=== PATIENT | male | born 1945 | race Caucasian/White ===

== ENCOUNTER → 2019-09-22 | Outpatient (CLI) | payer MEDICARE, OTHER ==
[~2019-09-22] MED LIST: Bactrim Ds Tab1 EACH PO; CEFD300 PO; Clonazepam0.5 MG PO; Lovastatin20 MG PO; METO25 PO; Naprosyn500 MG PO; Naproxen500 MG PO; Norco 5-325 Ta1 EACH PO; OMEP40CA12 PO
== END | disposition home or self-care (01) ==
LOC: LAB SHORT 12:43 → LAB 12:43
DX: L82.1 Other seborrheic keratosis (principal)
CPT/HCPCS: 88305

== ENCOUNTER → 2020-12-13 | Outpatient (CLI) | payer MEDICARE, OTHER | END | disposition home or self-care (01) | LOC: LAB SHORT 18:41 → PLD 18:41 | DX: J02.9 Acute pharyngitis, unspecified (principal) | CPT/HCPCS: 87081 ==

== ENCOUNTER → 2021-06-15 | Outpatient (CLI) | payer MEDICARE, OTHER | LOC: LAB 14:58 → LAB SHORT 14:58 | DX: D48.5 Neoplasm of uncertain behavior of skin (principal); L57.0 Actinic keratosis; D04.39 Carcinoma in situ of skin of other parts of face; Z88.0 Allergy status to penicillin | CPT/HCPCS: 88305 ==

== ENCOUNTER → 2022-06-26 | Outpatient (CLI) | payer MEDICARE, OTHER | END | disposition home or self-care (01) | LOC: LAB SHORT 15:26 → PLD 15:26 | DX: C44.612 Basal cell carcinoma of skin of right upper limb, including shoulder (principal) | CPT/HCPCS: 88305 ==

== ENCOUNTER → 2022-06-29 | Outpatient (CLI) | payer MEDICARE | END | disposition home or self-care (01) | LOC: LAB 11:45 → LAB SHORT 11:45 | DX: R31.9 Hematuria, unspecified (principal); R30.9 Painful micturition, unspecified | CPT/HCPCS: 87077; 87086; 87186 ==

== ENCOUNTER → 2022-07-11 | Outpatient (CLI) | payer MEDICARE, OTHER | END | disposition home or self-care (01) | LOC: LAB SHORT 12:15 | DX: C44.612 Basal cell carcinoma of skin of right upper limb, including shoulder (principal) | CPT/HCPCS: 88305 ==

== ENCOUNTER 2023-08-25 20:51 | Inpatient (IN) | payer MEDICARE, OTHER ==
[~2023-08-25] VITALS: Ht 175.3 cm; Wt 89.7 kg
[~2023-08-25 20:51] MED LIST changes: +ATEN50 PO; +ATOR40TA PO; +Amlodipine Bes2.5 MG PO; +NITR.4SL SL
[2023-08-25 21:09] LABS: BASOPHILS ABSOLUTE AUTO 0.05 K/mm3 (0.00-0.23); BASOPHILS PERCENT AUTO 1 % (0-2); EOSINOPHILS ABSOLUTE AUTO 0.13 K/mm3 (0.00-0.68); EOSINOPHILS PERCENT AUTO 1 % (0-6); Hematocrit 39.6 % (37.0-53.0); Hemoglobin 13.7 g/dL (13.5-17.5); IMMATURE GRAN ABSOLUTE AUTO 0.02 K/mm3 (0.00-0.10); IMMATURE GRAN PERCENT AUTO 0 % (0-1); LYMPHOCYTES ABSOLUTE AUTO 3.65 K/mm3 (0.84-5.20); LYMPHOCYTES PERCENT AUTO 39 % (21-46); MONOCYTES ABSOLUTE AUTO 0.88 K/mm3 (0.16-1.47); MONOCYTES PERCENT AUTO 9 % (4-13); Mean Corpuscular HGB 31.2 pg (26.0-34.0); Mean Corpuscular HGB Conc 34.6 g/dL (31.5-36.5); Mean Corpuscular Volume 90 fL (80-100); Mean Platelet Volume 10.6 fL (9.1-12.4); NEUTROPHILS ABSOLUTE AUTO 4.67 K/mm3 (1.96-9.15); NEUTROPHILS PERCENT AUTO 50 % (41-73); Platelet Count 265 K/mm3 (150-400); RDW Coefficient Variation 12.9 % (11.7-14.2); RDW Standard Deviation 42.5 fL (35.1-46.3); Red Blood Cell Count 4.39 M/mm3 (4.30-5.90)
[2023-08-25 21:24] LABS: Albumin, Blood 3.6 g/dL (3.4-5.0); Bilirubin, Total 0.5 mg/dL (0.1-1.0); Bun/Creatinine Ratio 18.7 (12.0-20.0); Calcium, Blood 9.2 mg/dL (8.5-10.1); Creatinine, Blood 0.96 mg/dL (0.60-1.20); Globulin, Blood 3.6 g/dL (2.2-4.0); Total Protein, Blood 7.2 g/dL (6.4-8.2)
[2023-08-26] VITALS (18 sets, daily range): BP systolic 96–141; BP diastolic 58–80
--- NOTE | 2023-08-26 01:40 | NUR ---
ADMISSION REPORT RECEIVED FROM ER NURSE. PATIENT ARRIVES TO PCU 17 AND IS ABLE TO STAND PIVOT SELF TO PCU BED. PATIENT ORIENTED TO ROOM AND CALL LIGHT SYSTEM. ALERT AND ORIENTED x4, [place]. ANSWERING ALL QUESTIONS APPROPRIATLEY. BP STABLE, PATIENT ON 2L NC WITH SPO2 >90%, CPAP FROM ER AT BEDSIDE. REPORTS SOME NAUSEA AND SLIGHT CHEST DSCOMFORT BUT DOES NOT DESCRIBE IT PAIN, STATES "HEAVINESS" AND POINTS TO LEFT LOWER CHEST AREA. URINAL PROVIDED. BED IN LOW POSITION, CALL LIGHT IN REACH.
[2023-08-26 03:08] LABS: Anti-Xa UFH, PHA Monitoring <0.10 IU/mL; International Normalized Ratio 0.99; Prothrombin Time Results 10.4 Sec (9.7-11.5)
--- NOTE | 2023-08-26 04:12 | NUR ---
PROVIDER PT ADMITTED. CONCERNS FOR ACS AND GA. ORDERS TO START ON HEPARIN GTT AND PLAVIX. PT UNDERWENT PE CT STUDY PREADMISSION. RECEIVED RESULTS OF STUDY, NEGATIVE FOR PE, POSITIVE FOR 3CM THORACIC ANEURYSM. ALERTED PROVIDER EZEKIEL. ORDERS TO MAINTAIN MEDICATION COURSE. NPO FOR POSSIBILITY OF PCI WITH CARDIOLOGY TODAY.
[2023-08-26 06:17] LABS: Influenza A, PCR NEGATIVE (NEGATIVE); Influenza B, PCR NEGATIVE (NEGATIVE); Resp Syncytial Virus, PCR NEGATIVE (NEGATIVE); SARS-Cov-2 (COVID-19) PCR, MMC NEGATIVE (NEGATIVE)
--- NOTE | 2023-08-26 06:25 | NUR ---
SHIFT SUMMARY PATIENT ALERT AND ORIENTED x4, ABLE TO MAKE NEEDS KNOWN TO STAFF. BP STABLE, TELE READING SR 70s DURING THE NIGHT, REMAINED ON 2L NC WITH SPO2 >95%, CPAP AT BEDSIDE. NO OTHER REPORTS OF NAUSEA OR CHEST DISCOMFORT SINCE ADMISSION. HEPARIN GTT AND FLUIDS INFUSING PER EMAR. PATIENT USING URINAL INDEPENDENTLY WITH ADEQUATE OUTPUT DURING THE NIGHT. NO OTHER CHANGES SINCE ADMISSION, WILL REPORT TO DAY SHIFT RN.
[2023-08-26 09:09] LABS: BASOPHILS ABSOLUTE AUTO 0.01 K/mm3 (0.00-0.23); BASOPHILS PERCENT AUTO 0 % (0-2); EOSINOPHILS ABSOLUTE AUTO 0.02 K/mm3 (0.00-0.68); EOSINOPHILS PERCENT AUTO 0 % (0-6); Hematocrit 38.3 % (37.0-53.0); IMMATURE GRAN ABSOLUTE AUTO 0.02 K/mm3 (0.00-0.10); IMMATURE GRAN PERCENT AUTO 0 % (0-1); LYMPHOCYTES ABSOLUTE AUTO 0.88 K/mm3 (0.84-5.20); LYMPHOCYTES PERCENT AUTO 9 % (21-46); MONOCYTES ABSOLUTE AUTO 0.57 K/mm3 (0.16-1.47); MONOCYTES PERCENT AUTO 6 % (4-13); Mean Corpuscular HGB Conc 33.9 g/dL (31.5-36.5); Mean Corpuscular Volume 91 fL (80-100); Mean Platelet Volume 10.5 fL (9.1-12.4); NEUTROPHILS ABSOLUTE AUTO 8.52 K/mm3 (1.96-9.15); NEUTROPHILS PERCENT AUTO 85 % (41-73); Platelet Count 192 K/mm3 (150-400); RDW Coefficient Variation 12.9 % (11.7-14.2); RDW Standard Deviation 42.8 fL (35.1-46.3); White Blood Cell Count 10.02 K/mm3 (4.00-11.30)
[2023-08-26 09:30] LABS: Albumin, Blood 3.2 g/dL (3.4-5.0); Albumin/Globulin Ratio 0.9 (0.8-1.8); Bilirubin, Total 0.5 mg/dL (0.1-1.0); Bun/Creatinine Ratio 15.7 (12.0-20.0); Creatinine, Blood 0.96 mg/dL (0.60-1.20); Globulin, Blood 3.4 g/dL (2.2-4.0); Potassium, Blood 3.9 mmol/L (3.5-5.5); Total Protein, Blood 6.6 g/dL (6.4-8.2)
--- NOTE | 2023-08-26 12:17 | NUR ---
AM NOTES: PT ARRIVED BACK IN THE ROOM FROM THE [facility] RIGHT RADIAL SITE WITH [address], PT RECEIVED 2 STENTS, PT RESTING AT THIS TIME, FAMILY MADE AWARE, VITALS HAS BEEN STABLE. WILL CONTINUE TO MONITOR PT
--- NOTE | 2023-08-26 12:30 | NUR ---
CARE NOTE THIS RN ROUNDED ON PT PER ESA LOPEZ RN REQUEST. THERE IS NO APPARENT BLEEDING ON R RADIAL ACCESS SITE, 2 TR BANDS ARE IN PLACE. PT APPEARED TO BE SLEEPING COMFORTABLY.
[2023-08-26] MEDS ORDERED: OMEP20ER PO (17:37)
--- NOTE | 2023-08-26 17:38 | NUR ---
PT SUMMARY: PT RECOVERED POST ANGIO WITH NO ISSUES, RIGHT RADIAL SITE WITH CLEAR DRESSING IN PLACE, ARM BOARD FOR SUPPORT. PT COMPLIANT WITH NOT MOVING RIGHT ARM. VITALS HAS BEEN STABLE. PT DENIES ANY CHEST PAIN/PRESSURE, PT C/O NAUSEA ALL T/O THE DAY PT MENTIONED THAT HE DOES TAKE OMEPRAZOLE FOR [employer]CI REFLUX AT HOME 40MG BEFORE DINNER, CALLED DR PALACIO AND ORDER TO START OMEPRAZOLE TODAY. PT HAS BEEN MEDICATED FOR NAUSEA TWICE FOR THE SHIFT, PT ALSO C/O MILD SOB PT REQUESTED 2L OF O2 FOR SUPPORT PT STATED IT HELPED THIS MORNING. A LOT OF FAMILY AND FRIENDS CAME TO VISIT. PT REFUSED DINNER FOR NOW DUE TO NAUSEA. PT NOW BACK IN BED, CALL LIGHTS IN REACH, CALLS APPROPRIATELY.
[2023-08-27 03:39] LABS: Hematocrit 34.6 % (37.0-53.0); Hemoglobin 11.6 g/dL (13.5-17.5)
[2023-08-27 04:02] LABS: Bilirubin, Total 0.6 mg/dL (0.1-1.0); Calcium, Blood 8.3 mg/dL (8.5-10.1); Creatinine, Blood 0.93 mg/dL (0.60-1.20); Potassium, Blood 3.6 mmol/L (3.5-5.5)
[2023-08-27 04:49] VITALS: BP 122/74
--- NOTE | 2023-08-27 06:23 | NUR ---
SHIFT SUMMARY PATIENT ALERT AND ORIENTED x4, ABLE TO MAKE NEEDS KNOWN TO STAFF. BP STABLE, TELE READING SB/SR DURING THE NIGHT, PATIENT ON RA DURING THE NIGHT WITH SPO2 >93%. NO EPISODES OF CHEST PAIN THIS SHIFT. RIGHT RADIAL SITE REMAINS WITHOUT S/S HEMATOMA, TEGADERM IN PLACE THAT IS C/D/I, PATIENT WEARING ARM BOARD. PATIENT AMBULATING INTO BATHROOM INDEPENDENTLY WITH ADEQUATE OUTPUT. NO EPISODES OF N/V. NO OTHER CHANGES DURING THE NIGHT, WILL REPORT TO DAY SHIFT RN.
[2023-08-27 07:40] VITALS: BP 151/85
[2023-08-27 12:12] VITALS: BP 142/76
--- NOTE | 2023-08-27 12:44 | NUR ---
AM NOTES; UPON GETTING UP IN THE CHAIR FOR BREAKFAST AFTER 10 MINS PT REQUESTED TO GET BACK IN BED DUE TO HEADACHE THEN PT STARTED FEELING NAUSEATED, SHORT OF BREATH CHEST PRESSURE 6/10 SKIN WAS DIAPHORETIC AND CLAMMY, PT STATED ALL OF A SUDDEN HE FELT FATIGUED. PT WAS MEDICATED FOR NAUSEA THAT HELPED A LITTLE CHEST PRESSURE WAS TILL THERE, DR CHANG MADE AWARE ORDERED NITRO, EKG AND TROP. VTIALS HRR SR 60-70'S, SBP 140-150'S, SATS ABOVE 95% ON 2L OF O2, AFEBRILE. PT WAS GIVEN ONE DOSE OF NITRO AND WAS EFFECTIVE, DR CHANG TALK TO THE PT AT THE BEDSIDE AND PT STATED HE HAS ANXIETY AND TAKES CLONAZEPAM FOR IT ONE TIME DOSE OF LORAZEPAM 0.5MG WAS GIVEN PT FELL ASLEEP FOR MORE THAN AN HR. TROP CMAE BACK HIGH AT 656 DR CHANG MADE AWARE STATED SHE WILL TALK TO THE TRIPPER ABOUT THE RESULT. PT'S FAMILY CAME TO VISIT LUNCH TIME THEN PT WENT TO THE BATHROOM AFTER PT GOT BACK IN BED PT STARTED C/O OF CHEST PRESSURE AGAIN 4/10 SBP'S 140'S, HRR 60'S SR, SATS ABOVE 95% ON RA. DR FITCH CAME IN THE ROOM TO SEE PT, PLAN TO DO REPEAT ANGIO THIS AFTERNOON TO CHECK THE STENTS. PT WAS AGREEABLE. REUSED NITRO SL FOR NOW PT STATED CHCEST PRESSURE HAS SUBSIDED 1/10. PT WAS INSTRUCTED TO CALL IF SYMPTOMS REOCCUR.
[2023-08-27 13:53] VITALS: BP 122/76
--- NOTE | 2023-08-27 14:35 | NUR ---
PT CAME BACK FROM THE DISPUTE COORDINATOR NO ISSUES FOUND, DR PARIS CLEARED THE PT TO GO HOME TODAY DR BECKHAM MADE AWARE. PT FOR CARDIAC REHAB REFERRAL. P ON RECOVERY STILL WILL WAIT UNTIL PT IS FULLY RECOVERED
[2023-08-27 15:25] VITALS: BP 129/70
[2023-08-27] MEDS ORDERED: ASPI81CH PO (16:36)
[2023-08-27] MEDS ORDERED: CEFP200 PO (16:37)
[2023-08-27] MEDS ORDERED: CLOP75 PO (16:37)
[2023-08-27] MEDS ORDERED: AZIT500 PO (16:37)
[2023-08-27] MEDS ORDERED: METO25ER PO (16:38)
[2023-08-27] MEDS ORDERED: PANT40 PO (16:38)
[2023-08-27] MEDS ORDERED: CLON.5 PO (17:12)
--- NOTE | 2023-08-27 17:58 | NUR ---
PT DISCHARGE TO HOME TODAY WITH DISCHARGE ORDERS HARD SCRIPT FOR CLONAZEPAM SENT WITH THE PT. TR BAND FULLY RECOVERED NO BLEEDING OR HEMATOMA NOTED ON THE SITE CLEAR DRESSING IN PLACE. PT TO CONTINUE ANTIBIOTICS AT HOME FOR PNA, DAUGHTER AND AT THE BEDSIDE EDUCATED ABOUT NEW MEDICATION AND FOLLOW UP APPT INSTRUCTIONS AND CARDIAC REHAB REFERRAL. STENT CARD SENT WITH THE PT. VITALS HAS BEEN STBALE HRR REMAINED SR 60'S, SBP 120-140'S, SATS ABOVE 95% ON RA, AFEBRILE. PT RESTED FOR THE REST OF THE SHIFT, NO CHEST PAIN/PRESSURE, SOB. NAUSEA X1 POST PROCEDURE MEDICATED WITH REGLAN IV. ALL BELONGINGS SENT WITH THE PT, ACCOMPANIED BY PCT VIA WHEELCHAIR
== END 2023-08-27 17:45 | disposition home or self-care (01) | DRG 321 ==
LOC: ER 20:51 → PCU 23:40 → ER 08-26 00:42 → PCU 08-26 00:42
PROVIDERS: Emergency Medicine; Family Medicine; ADMIT Internal Medicine
PROC: 027035Z Dilation of Coronary Artery, One Artery with Two Drug-eluting Intraluminal Devices, Percutaneous Approach (ICD-10-PCS; principal; 2023-08-26)
PROC: B240ZZ3 Ultrasonography of Single Coronary Artery, Intravascular (ICD-10-PCS; 2023-08-26)
PROC: 4A023N7 Measurement of Cardiac Sampling and Pressure, Left Heart, Percutaneous Approach (ICD-10-PCS; 2023-08-26)
PROC: B2111ZZ Fluoroscopy of Multiple Coronary Arteries using Low Osmolar Contrast (ICD-10-PCS; 2023-08-26)
PROC: B2151ZZ Fluoroscopy of Left Heart using Low Osmolar Contrast (ICD-10-PCS; 2023-08-26)
PROC: B24BZZZ Ultrasonography of Heart with Aorta (ICD-10-PCS; 2023-08-26)
PROC: B2111ZZ Fluoroscopy of Multiple Coronary Arteries using Low Osmolar Contrast (ICD-10-PCS; 2023-08-27)
DX: I25.110 Atherosclerotic heart disease of native coronary artery with unstable angina pectoris (principal); J96.01 Acute respiratory failure with hypoxia; I10 Essential (primary) hypertension; E78.5 Hyperlipidemia, unspecified; M19.90 Unspecified osteoarthritis, unspecified site; K21.9 Gastro-esophageal reflux disease without esophagitis; F41.9 Anxiety disorder, unspecified; I77.810 Thoracic aortic ectasia; Z87.891 Personal history of nicotine dependence; Z88.0 Allergy status to penicillin; Z79.82 Long term (current) use of aspirin; Z79.2 Long term (current) use of antibiotics; Z79.02 Long term (current) use of antithrombotics/antiplatelets; Z11.52 Encounter for screening for COVID-19
CPT/HCPCS: 0241U; 36415; 71045; 71046; 71260; 76937; 80053; 83735; 83880; 84484; 85014; 85018; 85025; 85347; 85379; 85520; 85610; 85730; 92978; 93005; 93010; 93306; 93454; 93458; 94660; 94760; 94762; 96372-59; 96374; 96375; 99152; 99153; 99285-25; A9270; C1725; C1753; C1769; C1874; C1887; C1894; C9600; J0456; J0461; J0696; J1644; J1650; J1790; J2060; J2250; J2371; J2405; J2765; J3010; J7030; J7050; Q9967

== ENCOUNTER → 2024-10-15 | Outpatient (CLI) | payer MEDICARE, OTHER ==
[~2024-10-15] MED LIST changes: +ASPI81CH PO; +AZIT500 PO; +CEFP200 PO; +CLON.5 PO; +CLOP75 PO; +METO25ER PO; +OMEP20ER PO; +PANT40 PO
[2024-10-16 14:58] LABS: Stool Occult Bld Immuno 1 Negative (NEGATIVE)
== END ==
LOC: LAB SHORT 12:40 → LAB 12:40
PROVIDERS: Family Medicine
DX: D64.9 Anemia, unspecified (principal)
CPT/HCPCS: G0328

== ENCOUNTER 2025-07-05 08:27 | Emergency (ER) | payer MEDICARE, OTHER ==
[~2025-07-05] VITALS: Ht 175.3 cm; Wt 97.5 kg
[2025-07-05 09:05] LABS: BASOPHILS ABSOLUTE AUTO 0.03 K/mm3 (0.00-0.23); BASOPHILS PERCENT AUTO 1 % (0-2); EOSINOPHILS ABSOLUTE AUTO 0.08 K/mm3 (0.00-0.68); EOSINOPHILS PERCENT AUTO 1 % (0-6); Hematocrit 44.8 % (37.0-53.0); Hemoglobin 14.9 g/dL (13.5-17.5); IMMATURE GRAN ABSOLUTE AUTO 0.02 K/mm3 (0.00-0.10); IMMATURE GRAN PERCENT AUTO 0 % (0-1); LYMPHOCYTES ABSOLUTE AUTO 1.53 K/mm3 (0.84-5.20); LYMPHOCYTES PERCENT AUTO 26 % (21-46); MONOCYTES ABSOLUTE AUTO 0.55 K/mm3 (0.16-1.47); MONOCYTES PERCENT AUTO 9 % (4-13); Mean Corpuscular HGB Conc 33.3 g/dL (31.5-36.5); Mean Corpuscular Volume 92 fL (80-100); NEUTROPHILS ABSOLUTE AUTO 3.70 K/mm3 (1.96-9.15); NEUTROPHILS PERCENT AUTO 63 % (41-73); NRBC ABSOLUTE 0.00 K/mm3 (0.00-0.02); NRBC Auto 0.0 /100 WBC (0.0-0.2); Platelet Count 193 K/mm3 (150-400); RDW Coefficient Variation 13.6 % (11.7-14.2); RDW Standard Deviation 46.4 fL (35.1-46.3)
[2025-07-05 09:29] LABS: Alanine Aminotransfer (ALT/SGP 22.0 U/L (12-78); Albumin, Blood 3.9 g/dL (3.4-5.0); Albumin/Globulin Ratio 1.1 (0.8-1.8); Anion Gap 8.0 mmol/L (3-11); Aspartate Aminotrans (AST/SGOT 12.0 U/L (12-37); Bilirubin, Total 1.2 mg/dL (0.1-1.0); Blood Urea Nitrogen 18.0 mg/dL (8-24); CO2, Blood 25.0 mmol/L (21-32); Calcium, Blood 9.0 mg/dL (8.5-10.1); Chloride, Blood 109.0 mmol/L (98-108); Creatinine, Blood 1.01 mg/dL (0.60-1.20); Globulin, Blood 3.4 g/dL (2.2-4.0); Glucose, Blood 104.0 mg/dL (70-99); Potassium, Blood 3.9 mmol/L (3.5-5.5); Sodium, Blood 138.0 mmol/L (136-145); Total Protein, Blood 7.3 g/dL (6.4-8.2)
[2025-07-05] MEDS ORDERED: NS 1,000 ML IV SCH (12:30)
[2025-07-05 12:35] VITALS: BP 146/78
== END 2025-07-05 13:16 | disposition home or self-care (01) ==
LOC: ER 08:27
PROVIDERS: Student in an Organized Health Care Education/Training Program
DX: R07.89 Other chest pain (principal); R42 Dizziness and giddiness; E78.5 Hyperlipidemia, unspecified; K21.9 Gastro-esophageal reflux disease without esophagitis; I10 Essential (primary) hypertension; Z79.82 Long term (current) use of aspirin; Z79.899 Other long term (current) drug therapy; Z88.0 Allergy status to penicillin
CPT/HCPCS: 71046; 80053; 84484; 85025; 93005; 93010; 99285-25; J7030